=== PATIENT | female | born 2000 ===

== ENCOUNTER 2019-02-04 10:11 | Emergency (ER) | payer OTHER ==
[2019-02-04 10:32] VITALS: BMI 33.0
[2019-02-04 10:34] VITALS: RESP 18; O2SAT 98
--- NOTE | 2019-02-04 12:34 | ED PDOC ---
HPI: CCC, URI, Sore Throat Time Seen by Provider: 02/04/19 11:27 Chief Complaint (Nursing): ENT Problem Chief Complaint (Provider): URI symptoms x 3 days History Per: Patient History/Exam Limitations: no limitations Onset/Duration Of Symptoms: Days Ear Symptoms: Bilateral: None Additional Complaint(s): 18 yo female with no medical problems presents for evaluation of dry cough, sore throat and body aches for 3 days. PT reports feeling feverish but did not taken her temperature. PT has not taken any medications at home for pain or symptoms. Pt eating and drinking normally. Past Medical History Reviewed: Historical Data, Nursing Documentation, Vital Signs Vital Signs: Last Vital Signs Temp 98.9 F 02/04/19 10:33 Pulse 98 H 02/04/19 10:33 Resp 18 02/04/19 10:33 BP 105/56 L 02/04/19 10:33 Pulse Ox 98 02/04/19 11:38 Primary Care Provider: FAMILY PROVIDER,NO - Medical History PMH: No Chronic Diseases - Surgical History Surgical History: No Surg Hx - Family History Family History: States: No Known Family Hx - Living Arrangements Living Arrangements: With Family - Allergies Allergies/Adverse Reactions: Allergies Allergy/AdvReac Type Severity Reaction Status Date / Time No Known Allergies Allergy Verified 02/04/19 11:38 Review of Systems ROS Statement: Except As Marked, All Systems Reviewed And Found Negative Constitutional: Positive for: Fever (Tactile) ENT: Positive for: Throat Pain. Negative for: Ear Pain, Ear Discharge, Throat Swelling Cardiovascular: Negative for: Chest Pain, Palpitations Respiratory: Positive for: Cough. Negative for: Shortness of Breath, SOB with Exertion, Pleuritic Pain Physical Exam - Reviewed Nursing Documentation Reviewed: Yes Vital Signs Reviewed: Yes - Physical Exam Appears: Positive for: Well, Non-toxic, No Acute Distress Head Exam: Positive for: ATRAUMATIC, NORMAL INSPECTION, NORMOCEPHALIC Skin: Positive for: Normal Color, Warm, DRY Eye Exam: Positive for: Normal appearance ENT: Positive for: Normal ENT Inspection, Pharynx Is Neck: Positive for: Normal, Painless ROM Cardiovascular/Chest: Positive for: Regular Rate, Rhythm Respiratory: Positive for: Normal Breath Sounds. Negative for: Accessory Muscle Use, Respiratory Distress Back: Positive for: Normal Inspection Extremity: Positive for: Normal ROM Neurological/Psych: Positive for: Awake, Alert, Normal Tone - ECG O2 Sat by Pulse Oximetry: 98 Medical Decision Making Medical Decision Making: Strep (-) Disposition - Clinical Impression Clinical Impression: Viral illness - Patient ED Disposition Is Patient to be Admitted: No Counseled Patient/Family Regarding: Diagnosis, Need For Followup - Disposition Disposition: Routine/Home Disposition Time: 12:56 Condition: GOOD Additional Instructions: Rest, fluids. Instructions: Viral Pharyngitis Forms: [employer] ([place])
[2019-02-04 15:12] VITALS: BP 124/76; PULSE 97; TEMP 99.4
== END 2019-02-04 15:43 | disposition home or self-care (01) ==
LOC: H.ER 10:11
DX: B34.9 Viral infection, unspecified (principal)